=== PATIENT | female | born 1970 | race Hispanic/Latino ===

== ENCOUNTER 2019-02-22 12:15 | Emergency (ER) | payer OTHER ==
--- NOTE | 2019-02-22 13:54 | ED PDOC ---
Arrival/HPI - General Chief Complaint: Rib Injury Time Seen by Provider: 02/22/19 12:32 Historian: Patient - History of Present Illness Narrative History of Present Illness (Text): 02/22/19 13:53 48-year-old female presents emergency room complaining of right rib pain times 4 days worse with movement, states that the pain started after she was drinking coffee and she started coughing 4 days ago. Otherwise she reports, chills, chest pain, shortness of breath, dyspnea, URI symptoms, nausea, vomiting, urinary symptoms, trauma or injury. PMD [place] Past Medical History - Infectious Disease Hx of Infectious Diseases: None - Reproductive Menopause: Yes - Psychiatric Hx Substance Use: No - Surgical History Hx Orthopedic Surgery: Yes - Anesthesia Hx Anesthesia: Yes Hx Anesthesia Reactions: No Family/Social History Family/Social History: No Known Family HX Smoking Status: Current Some Days Smoker Hx Alcohol Use: Yes Frequency of alcohol use: Socially Hx Substance Use: No Allergies/Home Meds Allergies/Adverse Reactions: Allergies No Known Allergies Allergy (Verified 02/22/19 12:28) Review of Systems - Review of Systems Constitutional: absent: Fatigue, Fevers Respiratory: absent: SOB, Cough Cardiovascular: Other (+R rib pain). absent: Chest Pain, Palpitations Gastrointestinal: absent: Abdominal Pain, Diarrhea, Vomiting Genitourinary Female: absent: Dysuria, Frequency Musculoskeletal: absent: Arthralgias, Back Pain, Neck Pain Skin: absent: Rash, Skin Lesions Neurological: absent: Headache, Dizziness Physical Exam Vital Signs Temp Pulse Resp BP Pulse Ox 02/22/19 12:24 99.2 F 110 H 20 111/76 98 Temperature: Afebrile Blood Pressure: Normal Pulse: Tachycardic Respiratory Rate: Normal Appearance: Positive for: Well-Appearing, Non-Toxic, Comfortable Pain Distress: Mild Mental Status: Positive for: Alert and Oriented X 3 - Systems Exam Head: Present: Atraumatic, Normocephalic Pupils: Present: PERRL Extroacular Muscles: Present: EOMI Conjunctiva: Present: Normal Mouth: Present: Moist Mucous Membranes Neck: Present: Normal Range of Motion Respiratory/Chest: Present: Clear to Auscultation, Good Air Exchange. No: Respiratory Distress, Accessory Muscle Use, Tender to Palpation Cardiovascular: Present: Regular Rate and Rhythm, Normal S1, S2. No: Murmurs Back: Present: Normal Inspection. No: CVA Tenderness, Midline Tenderness, Paraspinal Tenderness Upper Extremity: Present: Normal Inspection. No: Cyanosis, Edema Lower Extremity: Present: Normal Inspection. No: Edema Neurological: Present: GCS=15, CN II-XII Intact, Speech Normal Skin: Present: Warm, Dry, Normal Color. No: Rashes Psychiatric: Present: Alert, Oriented x 3, Normal Insight, Normal Concentration Medical Decision Making ED Course and Treatment: 02/22/19 13:51 Plan : - XR R ribs - Lidoderm patch - Toradol IM - Flexeril PO - UA - Influenza 02/22/19 14:15 XR R ribs : no fracture, NAD. UA : (-) Influenza : (-) Patient developed a fever while in the ER with temp of 100.7, given tylenol, UA and influenza ordered. Results explained to the patient. Diagnosis of musculoskeletal rib pain discussed with the patient, advised to monitor her symptoms. Advised to follow up with primary care physician in 1-2 days without fail. Advised to take medication as prescribed. Return to the emergency room at any time for any new or worsening symptoms. Patient states she fully agrees with and understands discharge instructions. States that she agrees with the plan and disposition. Verbalized and repeated discharge instructions and plan. I have given the patient opportunity to ask any additional questions. - RAD Interpretation Radiology Orders: 02/22/19 13:49 RIBS RIGHT & PA CHEST [RAD] Stat - PA / STONE PAVER / Resident Statement MD/DO has reviewed & agrees with the documentation as recorded. Disposition/Present on Arrival - Present on Arrival Any Indicators Present on Arrival: No History of DVT/PE: No History of Uncontrolled Diabetes: No Urinary Catheter: No History of Decub. Ulcer: No History Surgical Site Infection Following: None - Disposition Have Diagnosis and Disposition been Completed?: Yes Diagnosis: Rib pain on right side Disposition: HOME/ ROUTINE Disposition Time: 14:15 Patient Plan: Discharge Patient Problems: Current Active Problems Problem Status Onset Rib pain on right side Acute Condition: STABLE Discharge Instructions (ExitCare): Chest Pain (ED) Additional Instructions: Thank you for letting us take care of you today. You were treated for back pain. The emergency medical care you received today was directed at your acute symptoms. If you were prescribed any medication, please fill it and take as directed. It may take several days for your symptoms to resolve. Return to the Emergency Department if your symptoms worsen, do not improve, or if you have any other problems. Please contact your doctor in 2 days for re-evaluation and follow up. Bring any paperwork you were given at discharge with you along with any medications you are taking to your follow up visit. Our treatment cannot replace ongoing medical care by a primary care provider (PCP) outside of the emergency department. Thank you for allowing the [facility] team to be part of your care today. If you had an X-Ray : A Radiologist will review the ED reading if any change in treatment is needed we will contact you. Prescriptions: Cyclobenzaprine [Cyclobenzaprine HCl] 10 mg PO TID PRN #15 tab PRN Reason: Muscle Spasm Meloxicam [Mobic] 15 mg PO DAILY PRN #20 tab PRN Reason: Pain, Moderate (4-7) Forms: [employer] (Bulgarian), WORK NOTE
[2019-02-22 14:41] VITALS: RESP 17
[2019-02-22 15:14] LABS: URINE BILIRUBIN NEGATIVE (NEGATIVE); URINE BLOOD MODERATE (NEGATIVE); URINE GLUCOSE (UA) NEGATIVE (NEGATIVE); URINE LEUKOCYTE ESTERASE NEGATIVE Leu/uL (NEGATIVE); URINE PROTEIN 30 mg/dL (<30 mg/dL); URINE UROBILINOGEN 0.2 E.U./dL (<1 E.U./dL)
[2019-02-22 15:20] LABS: URINE APPEARANCE CLEAR (CLEAR); URINE COLOR YELLOW (YELLOW)
[2019-02-22 15:36] VITALS: BP 105/67; PULSE 99; TEMP 100.3; O2SAT 96
[2019-02-22 15:47] LABS: URINE EPITHELIAL CELLS MANY /hpf (0-5)
--- NOTE | 2019-02-22 17:54 | RAD ---
Date of service: 02/22/2019 PROCEDURE: Radiographs of the Chest and Right Ribs. HISTORY: Pain COMPARISON: None available TECHNIQUE: Frontal radiograph of the chest and multiple oblique radiographs of the right ribs were obtained. 3 views obtained. FINDINGS: RIGHT RIBS: No fracture or focal lesion visualized. LUNGS: Mild biapical pleural thickening. PLEURA: No pneumothorax or pleural fluid. Mild biapical pleural thickening CARDIOVASCULAR: Normal cardiac size. No pulmonary vascular congestion. No aortic atherosclerotic calcification present OTHER FINDINGS: None. IMPRESSION: Unremarkable radiographs of the chest and right ribs. No definitive evidence acute displaced right-sided rib fracture.
== END 2019-02-22 15:49 | disposition home or self-care (01) ==
LOC: ED 12:15
DX: R07.9 Chest pain, unspecified (principal)
CPT/HCPCS: 71101; 81001; 87086; 87804; 96372; 99283; J1885